=== PATIENT | male | born 1960 | race Caucasian/White ===

== ENCOUNTER 2017-05-09 11:17 | Observation (INO) | payer OTHER ==
[~2017-05-09 11:17] MED LIST: FENTAnyl 50 MCG/ML VIAL IV; HYDROmorphONE (0.2 MG/ML) 10ML SYG IV; ONDANSETRON 4 MG INJ IV; ROCURONIUM 50 MG INJ
[2017-05-09] MEDS ORDERED: LIDOCAINE 2% (SDV) 5 ML INJ (14:52)
[2017-05-09] MEDS ORDERED: PROPOFOL 20 ML (14:52)
[2017-05-09] MEDS ORDERED: FENTAnyl 50 MCG/ML VIAL (15:22)
[2017-05-09] MEDS ORDERED: KETOROLAC 30 MG INJ (15:34)
[2017-05-09] MEDS ORDERED: DEXAMETHASONE 4 MG/ML 1 ML INJ (15:34)
[2017-05-09] MEDS ORDERED: METOCLOPRAMIDE 10 MG INJ (15:34)
[2017-05-09] MEDS ORDERED: ONDANSETRON 4 MG INJ (15:34)
[2017-05-09] MEDS: BUPIVACAINE 0.5% 30 ML VIAL INJ (15:55)
[2017-05-09] MEDS: LIDOCAINE 1%/EPI (1:100,000) (MDV) 20 ML (15:55)
[2017-05-09] MEDS ORDERED: OXYCODONE/ACETAMINOPHEN (5/325) TAB PO ×2 (16:00→16:30)
[2017-05-09] MEDS ORDERED: LABETALOL HCL 20MG INJ IV (16:00)
[2017-05-09] MEDS ORDERED: MEPERIDINE 25 MG INJ IV (16:00)
[2017-05-09] MEDS ORDERED: FENTAnyl 50 MCG/ML VIAL IV ×3 (16:00)
[2017-05-09] MEDS ORDERED: HYDROmorphONE (0.2 MG/ML) 10ML SYG IV ×2 (16:00)
[2017-05-09] MEDS ORDERED: DIPHENHYDRAMINE 50 MG INJ IV (16:00)
[2017-05-09] MEDS ORDERED: hydrALAzine 20 MG INJ IV (16:00)
[2017-05-09] MEDS ORDERED: METOCLOPRAMIDE 10 MG INJ IV (16:00)
[2017-05-09] MEDS ORDERED: EPHEDrine SULFATE 50 MG/5 ML SYG IV (16:00)
[2017-05-09] MEDS: NEOMYC/POLYMYX/BACIT 30 GM OINT (16:00)
[2017-05-09] MEDS ORDERED: ONDANSETRON 4 MG INJ IV (16:30)
[2017-05-09] MEDS ORDERED: IBUPROFEN 600 MG TAB PO (16:30)
[2017-05-09] MEDS: HYDROmorphONE (0.2 MG/ML) 10ML SYG IV (16:36)
[2017-05-09] MEDS: ONDANSETRON 4 MG INJ IV (16:36)
[2017-05-09] MEDS: LACTATED RINGER'S 1,000 ML IV (18:20)
[2017-05-09] MEDS: KETOROLAC 30 MG INJ IV (21:18)
[2017-05-10] MEDS: LACTATED RINGER'S 1,000 ML IV (02:14)
[2017-05-10 11:47] LABS: ADD UMIC YES; UR ASCORBIC ACID NEGATIVE (NEGATIVE); UR BACTERIA FEW /HPF (NONE SEEN); UR BILIRUBIN (Dip) NEGATIVE (NEGATIVE); UR BLOOD (Dip) 1+ mg/dL (NEGATIVE); UR BUDDING YEAST MODERATE /HPF (NONE SEEN); UR CLARITY SLIGHTLY CLOUDY (CLEAR); UR COLOR YELLOW (YELLOW); UR GLUCOSE (Dip) NEGATIVE (NEGATIVE); UR KETONES (Dip) NEGATIVE (NEGATIVE); UR LEUKOCYTE ESTERASE (Dip) 3+ Leu/ul (NEGATIVE); UR NITRITE (Dip) NEGATIVE (NEGATIVE); UR RBC 2 /HPF (0-5); UR TOTAL PROTEIN (Dip) NEGATIVE (NEGATIVE); UR UROBILINOGEN (Dip) NEGATIVE (NEGATIVE); UR WBC 142 /HPF (0-5)
== END 2017-05-10 13:20 | disposition home or self-care (01) ==
LOC: SDS 11:17 → REC 16:45 → MS2 17:40
DX: K60.3 Anal fistula (principal); K64.4 Residual hemorrhoidal skin tags
CPT/HCPCS: 45300; 81001; 88304

== ENCOUNTER 2017-10-17 08:23 | Day surgery (SDC) | payer OTHER ==
[~2017-10-17 08:23] MED LIST changes: -FENTAnyl 50 MCG/ML VIAL IV; -HYDROmorphONE (0.2 MG/ML) 10ML SYG IV; +LACTATED RINGER'S 1,000 ML IV*; -ONDANSETRON 4 MG INJ IV; -ROCURONIUM 50 MG INJ
[2017-10-17] MEDS ORDERED: METOCLOPRAMIDE 10 MG INJ (11:26)
[2017-10-17] MEDS ORDERED: MIDAZOLAM 1 MG/ML 2 ML INJ (11:26)
[2017-10-17] MEDS ORDERED: ONDANSETRON 4 MG INJ (11:26)
[2017-10-17] MEDS ORDERED: FENTAnyl 50 MCG/ML VIAL ×2 (11:26→12:00)
[2017-10-17] MEDS ORDERED: PROPOFOL 20 ML (11:26)
[2017-10-17] MEDS ORDERED: KETOROLAC 30 MG INJ (11:57)
[2017-10-17] MEDS: BUPIVACAINE 0.25%/EPI (SDV) 30 ML INJ (11:59)
[2017-10-17] MEDS: LIDOCAINE 1% (MPF) 30 ML INJ (11:59)
[2017-10-17] MEDS ORDERED: DIPHENHYDRAMINE 50 MG INJ IV (12:00)
[2017-10-17] MEDS ORDERED: ONDANSETRON 4 MG INJ IV ×2 (12:00→13:00)
[2017-10-17] MEDS ORDERED: HYDROmorphONE 1 MG/5 ML IV SYRINGE IV ×2 (12:00)
[2017-10-17] MEDS ORDERED: OXYCODONE/ACETAMINOPHEN (5/325) TAB PO ×3 (12:00→13:00)
[2017-10-17] MEDS ORDERED: MEPERIDINE 25 MG INJ IV (12:00)
[2017-10-17] MEDS: HYDROGEN PEROXIDE 118 ML TOP (12:17)
[2017-10-17] MEDS: HYDROmorphONE 1 MG/5 ML IV SYRINGE IV ×2 (12:59→13:14)
[2017-10-17] MEDS ORDERED: KETOROLAC 30 MG INJ IV (18:00)
== END 2017-10-17 18:05 | disposition home or self-care (01) ==
LOC: SDS 08:23
DX: K60.3 Anal fistula (principal)
CPT/HCPCS: 46020; 71045; 93005

== ENCOUNTER 2018-03-09 07:34 | Day surgery (SDC) | payer OTHER ==
[2018-03-09] MEDS ORDERED: LIDOCAINE 2% (SDV) 5 ML INJ (08:58)
[2018-03-09] MEDS ORDERED: PROPOFOL 40 ML (08:58)
== END 2018-03-09 10:40 | disposition home or self-care (01) ==
LOC: GIL 07:34
DX: Z12.11 Encounter for screening for malignant neoplasm of colon (principal)
CPT/HCPCS: 44388